=== PATIENT | female | born 1960 | race African-American/Black ===

== ENCOUNTER 2019-08-09 05:38 | Emergency (ER) | payer BC ==
[~2019-08-09] VITALS: Ht 157.5 cm; Wt 68.0 kg
[~2019-08-09 05:38] MED LIST: NAPROSYN500 MG PO; NOHOMEMEDICATIONS
[2019-08-09 06:52] LABS: ABSOLUTE NEUTROPHILS 2.7 thou/uL (1.4-8.2); EOSINOPHILS 0.5 % (0.0-3.0); HEMATOCRIT 36.1 % (37.0-47.0); HEMOGLOBIN 11.7 gm/dL (12.0-15.0); LYMPHOCYTES 45.7 % (24.0-44.0); MCH 28.8 pg (26.0-34.0); MCHC 32.5 g/dL (28.0-37.0); MCV 88.6 fL (80.0-100.0); MONOCYTES 6.2 % (1.0-8.0); PLATELET COUNT 216 thou/uL (150-400); POLYS 46.6 % (36.0-66.0); RBC 4.08 mil/uL (4.20-5.00); RDW 14.2 % (10.5-14.5); WBC 5.9 thou/uL (4.0-11.0)
[2019-08-09 07:05] LABS: CALCIUM 9.9 mg/dL (8.5-10.1); POTASSIUM 3.6 mmol/L (3.5-5.1)
[2019-08-09] MEDS ORDERED: ZONEGRAN100 MG PO (15:01)
[2019-08-09 15:49] VITALS: BP 132/78
--- NOTE | 2019-08-09 17:34 | EKG ---
[place] [address] [facility] [place] [address] ELECTROCARDIOGRAM REPORT Name: SKINNERILIANAY Steffi Room #: [facility]#: [id number] Admission: 08/09/19 Attend Phys: Discharge: 08/09/19 Date of : 58 Report #: [id number] THIS REPORT FOR: //name// [facility] ED Test Date: 2019-08-09 Test Time: 05:47:09 Pat Name: DENNIS SKINNER Department: Room: Gender: Female [employer]ension [employer] Manager: MERY : 1960 Requested By: Cotl Evangelista Order Number: [id number] MD: Jony Phillips Measurements Intervals [place] Rate: 62 P: 66 GA: 172 QRS: 4 QRSD: 81 T: 28 QT: 382 QTc: 388 Interpretive Statements Sinus rhythm Left ventricular hypertrophy Compared to ECG 10/26/2012 09:35:27 Minimal voltage criteria for LVH is now present Electronically Signed On 08-09-2019 17:34:01 [employer] by Jony Phillips [email or web address] <ELECTRONICALLY SIGNED> By: Jony Phillips MD, [facility] 08/09/19 1734 [id number] Jony Phillips MD, FACC /EPI
== END 2019-08-09 15:50 | disposition home or self-care (01) ==
LOC: ER 05:38
PROVIDERS: Emergency Medicine
DX: Q07.00 Arnold-Chiari syndrome without spina bifida or hydrocephalus (principal); F17.210 Nicotine dependence, cigarettes, uncomplicated